=== PATIENT | female | born 1990 | race Caucasian/White ===

== ENCOUNTER 2016-11-21 09:47 | Emergency (ER) | payer MEDICAID, OTHER ==
[2016-11-21 09:47] VITALS: BMI 18.7
[2016-11-21 09:59] VITALS: BP 109/73; PULSE 93; RESP 18; TEMP 98; O2SAT 100
--- NOTE | 2016-11-21 10:29 | C.PDOC ---
History Of Present Illness 26 year old patient presents to the ED for a follow up after being discharged from [facility]. Patient reports she came to the ER by mistake. She was supposed to follow up in the clinic. Patient denies any suicidal ideation, homicidal ideation, hallucinations, or other complaints. Patient was cleared by Crisis prior to provider evaluation. Time Seen by Provider: 11/21/16 10:05 Chief Complaint (Nursing): Psychiatric Evaluation History Per: Patient History/Exam Limitations: no limitations Onset/Duration Of Symptoms: Other Suicide/Self Injury Attempted (Context): None Modifying Factor(s): None Severity: None Pain Scale Rating Of: 0 Involuntary Hold By: None Recent travel outside of the [place]: No Past Medical History Reviewed: Historical Data, Nursing Documentation, Vital Signs Vital Signs: Last Vital Signs Temp 98 F 11/21/16 09:51 Pulse 93 H 11/21/16 09:51 Resp 18 11/21/16 09:51 BP 109/73 11/21/16 09:51 Pulse Ox 100 11/21/16 13:18 - Medical History PMH: Anemia, Anxiety, Depression, Post Traumatic Stress Disorder - [facility] Procedures ASPIRAT CURET-POST DELIV (12/17/12) Family History: States: Unknown Family Hx - Social History Hx Alcohol Use: No Hx Substance Use: No - Immunization History Hx Tetanus Toxoid Vaccination: Yes Hx Influenza Vaccination: Yes Hx Pneumococcal Vaccination: No Review Of Systems Except As Marked, All Systems Reviewed And Found Negative. Psych: Negative for: Suicidal ideation, Other (hallucinations, homicidal ideation) Physical Exam - Physical Exam Appears: Non-toxic, No Acute Distress Skin: Warm, Dry Head: Atraumatic, Normacephalic Neck: Normal ROM, Supple Chest: Symmetrical Cardiovascular: Rhythm Regular Respiratory: Normal Breath Sounds, No Rales, No Rhonchi, No Wheezing Extremity: Normal ROM Neurological/Psych: Oriented x3 Gait: Steady ED Course And Treatment O2 Sat by Pulse Oximetry: 100 (room air) Pulse Ox Interpretation: Normal Progress Note: Labs were sent. Disposition - Disposition Referrals: [facility] [Outside] Disposition: HOME/ ROUTINE Disposition Time: 10:15 Condition: GOOD Additional Instructions: Thank you for letting us take care of you today. The emergency medical care you received today was directed at your acute symptoms. If you were prescribed any medication, please fill it and take as directed. It may take several days for your symptoms to resolve. Return to the Emergency Department if your symptoms worsen, do not improve, or if you have any other problems. Please contact your doctor or call one of the physicians/clinics you have been referred to that are listed on the Patient Visit Information form that is included in your discharge packet. Bring any paperwork you were given at discharge with you along with any medications you are taking to your follow up visit. Our treatment cannot replace ongoing medical care by a primary care provider (PCP) outside of the emergency department. Thank you for allowing the [facility] team to be part of your care today. Follow up with the clinic as scheduled. Instructions: Generalized Anxiety Disorder (ED) - Clinical Impression Clinical Impression: Generalized anxiety disorder - Scribe Statement The provider has reviewed the documentation as recorded by the Scribe Lyly Bansal Provider Attestation: All medical record entries made by the Scribe were at my direction and personally dictated by me. I have reviewed the chart and agree that the record accurately reflects my personal performance of the history, physical exam, medical decision making, and the department course for this patient. I have also personally directed, reviewed, and agree with the discharge instructions and disposition.
== END 2016-11-21 10:28 | disposition home or self-care (01) ==
LOC: C.ER 09:47
DX: F41.1 Generalized anxiety disorder (principal)